=== PATIENT | male | born 1995 | race Caucasian/White ===

== ENCOUNTER 2017-11-18 05:37 | Emergency (ER) | payer SELFPAY ==
[~2017-11-18] VITALS: Ht 170.2 cm; Wt 77.0 kg
[2017-11-18] MEDS ORDERED: LORAZEPAM 2MG/ML CPJ IM ONE (06:00)
[2017-11-18] MEDS ORDERED: HALOPERIDOL LACTATE 5MG/ML VIAL IM ONE (06:00)
[2017-11-18 06:13] LABS: BASOPHILS % 0.1 % (0.0-2.0); EOSINOPHILS % 0.2 % (0.0-5.0); HEMATOCRIT. 45.1 % (42.0-52.0); HEMOGLOBIN. 15.3 g/dL (14.0-18.0); LYMPHOCYTES % 24.2 % (20.0-50.0); MEAN CORPUSCULAR VOLUME 88.2 fL (80.0-94.0); MEAN PLATELET VOLUME 8.1 fl (7.4-10.4); MONOCYTES % 5.7 % (2.0-8.0); NEUTROPHILS % 69.8 % (40.0-76.0); PLATELET 279 x1000/uL (130-400); RED BLOOD CELL COUNT 5.11 mill/uL (4.7-6.1); RED CELL DISTRIBUTION WIDTH 14.1 % (11.6-14.6)
[2017-11-18 06:21] LABS: CHLORIDE 107 mEq/L (98-107)
[2017-11-18 06:25] LABS: ETHANOL BLOOD 88 mg/dL
[2017-11-18 13:44] VITALS: BP 119/59
== END 2017-11-18 13:46 | disposition home or self-care (01) ==
LOC: ER 05:37
DX: F14.10 Cocaine abuse, uncomplicated (principal); F12.10 Cannabis abuse, uncomplicated; R45.1 Restlessness and agitation; D72.829 Elevated white blood cell count, unspecified
CPT/HCPCS: 36415; 80053; 80307; 80329; 85025; 96372; 99284; G0482; J1630; J2060

== ENCOUNTER 2018-01-14 15:35 | Emergency (ER) | payer SELFPAY ==
[~2018-01-14] VITALS: Ht 172.7 cm; Wt 70.0 kg
[2018-01-14 16:58] VITALS: BP 110/72
[2018-01-14] MEDS ORDERED: SODIUM CHLORIDE 0.9% 1,000 ML IV ONE (17:25)
== END 2018-01-14 19:00 | disposition left against medical advice (07) ==
LOC: ER 15:35
DX: F19.10 Other psychoactive substance abuse, uncomplicated (principal); F17.200 Nicotine dependence, unspecified, uncomplicated; F12.10 Cannabis abuse, uncomplicated; F14.10 Cocaine abuse, uncomplicated
CPT/HCPCS: 71045; 93005; 99284; J7030; Z7610

== ENCOUNTER 2022-07-05 18:37 | Emergency (ER) | payer OTHER ==
[~2022-07-05] VITALS: Ht 167.6 cm; Wt 64.0 kg
[2022-07-05 19:48] VITALS: BP 126/77
== END 2022-07-05 20:07 | disposition home or self-care (01) ==
LOC: ER 18:37
DX: Z02.79 Encounter for issue of other medical certificate (principal)
CPT/HCPCS: 36415; 80320; 99283; G0480